=== PATIENT | female | born 1990 | race Caucasian/White ===

== ENCOUNTER → 2020-05-07 12:05 | Outpatient (CLI) | payer OTHER, SELFPAY | PROVIDERS: PCP Family Medicine; Visit Provider Family Medicine | DX: Z03.818 Encounter for observation for suspected exposure to other biological agents ruled out (principal) | CPT/HCPCS: U0003 ==

== ENCOUNTER → 2020-10-25 14:11 | Outpatient (CLI) | payer OTHER, SELFPAY ==
--- NOTE | 2020-10-25 14:18 | US_ITS ---
PROCEDURE: US BREAST RT COMPLETE CLINICAL INDICATION: RT BREAST LUMP,RT BREAST PAIN COMPARISON: No exams were available for comparison FINDINGS: No suspicious masses or focal nodules. Glandular tissue is noted in the retroareolar region. There is right axillary lymph node measuring 3.4 centimeters, demonstrates normal morphology with reniform shape and central fatty hilum. IMPRESSION: No suspicious findings or mass lesions. Dictated by: Erika Bundy 11/01/2020 10:23 Erika Bundy in [place] 11/01/2020 10:23
== END ==
PROVIDERS: PCP Family Medicine; Visit Provider Nurse Practitioner Family
DX: N64.4 Mastodynia (principal); N63.10 Unspecified lump in the right breast, unspecified quadrant
CPT/HCPCS: 76641

== ENCOUNTER → 2021-03-17 16:05 | Outpatient (CLI) | payer OTHER, SELFPAY | PROVIDERS: PCP Family Medicine; Visit Provider Nurse Practitioner | DX: Z20.822 Contact with and (suspected) exposure to COVID-19 (principal) | CPT/HCPCS: C9803; U0003; U0005 ==

== ENCOUNTER → 2021-04-21 12:18 | Outpatient (CLI) | payer OTHER, SELFPAY | PROVIDERS: PCP Family Medicine; Visit Provider Nurse Practitioner | DX: Z20.822 Contact with and (suspected) exposure to COVID-19 (principal) | CPT/HCPCS: C9803; U0003; U0005 ==

== ENCOUNTER 2021-04-23 11:51 | Emergency (ER) | payer OTHER, SELFPAY ==
[2021-04-23 11:55] VITALS: BP 131/86; PULSE 101; RESP 19; TEMP 36.8; O2SAT 98; BMI 26.7
--- NOTE | 2021-04-23 12:16 | HMH.EDUTC ---
[facility] [place] Clinical Impression: Sinusitis Qualifiers: Sinusitis location: unspecified location Chronicity: unspecified Qualified Code(s): J32.9 - Chronic sinusitis, unspecified Disposition: Home, Self-Care Condition on Discharge: Good Instructions: Sinusitis, DI for Sinusitis, Azithromycin Additional Instructions: *Monitor Temp, Over the counter Motrin or Tylenol as directed/as needed Tylenol every 4 hours and Motrin every 6 hours (as long as your family doctor has told you that you can take it) for fever or pain. and straight to ER if unable to lower temp less than 101.0 after medication given *Warm salt water gargles may help to soothe the throat *Throat Lozenges *Warm fluids like tea with honey may help to soothe the throat *Sleep elevated *Humidifier/Vaporizer *Flonase 2 sprays in each nostril daily but be aware that it may take 2-3 days before you notice improvement Follow up IMMEDIATELY for new or worsening symptoms or no Noticeable improvement over the next 48-72 hours. 911 for difficulty breathing or swallowing Prescriptions: Fluticasone Propionate [Flonase 50mcg nasal spray 16gm] 1 spr NS DAILY #1 ml Transmission Status: Pending to [facility] methylPREDNISolone [Medrol 4mg tab] 4 mg PO DIRECTED #21 tab Transmission Status: Pending to [facility] Azithromycin [Z-Raman 250mg Tab] 250 mg PO DIRECTED #6 tab Transmission Status: Pending to [facility] Referrals: Ángel Goel MD [Primary Care Provider] - As needed Forms: Work/School Release Time of Disposition: 12:23 Medical Decision Making - Joe Inquiry Pt receiving controlled substance: No Joe was queried for this patient: No Vital Signs: 04/23/21 11:55 Temperature 98.3 F Temperature Source Oral Pulse Rate [Right Brachial] 101 H Respiratory Rate 19 Blood Pressure [Right Arm] 131/86 Blood Pressure Mean [Right Arm] 101 Blood Pressure Source [Right Arm] Automatic Cuff Blood Pressure Position [Right Arm] Sitting 02 Sat by Pulse Oximetry 98 Oxygen Delivery Method Room Air Orders (Tests/Meds): ORDERS Category Date Time Status Covid-19 Nasal PCR ([facility]) Routine Lab 04/23/21 12:02 Received [facility] [place] HPI - General Stated complaint: covid exposure, symptoms Time Seen by Provider: 04/23/21 12:16 Mode of Arrival: Ambulatory Source of Information: Patient Limitations: No Limitations Description of Symptoms (Recalled from Triage Doc. by RN): PATIENT C/O SINUS CONGESTION/DRAINAGE, COUGH AND FATIGUE SINCE WEDNESDAY. HER FIANCE TESTED POSITIVE FOR COVID ON WEDNESDAY HEENT Symptoms (Recalled from RN notes): Yes Resp Symptoms (Recalled from RN notes): No Skin Symptoms (Recalled from RN notes): No MS Symptoms (Recalled from RN notes): No Functional Status (Recalled from RN notes): WNL - History of Present Illness Provider Complaint: Patient states that she has been around her boyfriend that tested positive for COVID states that she started with sinus congestion and pressure about a week ago and over the weekend he tested positive so on Wednesday she went and got tested and it was negative so today she came in to get checked thinking she may have a sinus infection - Related Data Home Medications Medication Instructions Recorded Confirmed Albuterol Sulfate [Albuterol HFA 2 puffs IH Q6HP PRN 10/09/18 10/09/18 Inhaler] Amitriptyline HCl [Elavil 25mg 25 mg PO DAILY 10/09/18 10/09/18 tablet] Ascorbic Acid [Vitamin C] 500 mg PO DAILY 10/09/18 10/09/18 Azelastine HCl [Azelastine Nasal 2 spray NS BID 10/09/18 10/09/18 [place] 30mL Bottle] Azithromycin [Z-Raman 250mg Tab] 250 mg PO UD DOSE PK 10/09/18 10/09/18 Ferrous Gluconate [Iron] 236 mg PO DAILY 10/09/18 10/09/18 Loratadine [Claritin] 10 mg PO DAILY 10/09/18 10/09/18 Montelukast Sodium [Montelukast 10 mg PO DAILY 10/09/18 10/09/18 10mg Tab] Norgestimate-Ethinyl Estradiol 1 each PO DAILY 10/09/18 10/09/18 [Estarylla 0.25-0.035 mg Tablet] Omepr
[2021-04-23 12:27] VITALS: BP 131/86; PULSE 101; RESP 19; TEMP 36.8; O2SAT 98
== END 2021-04-23 12:34 | disposition home or self-care (01) ==
PROVIDERS: Emergency Provider Nurse Practitioner; PCP Family Medicine
DX: J02.9 Acute pharyngitis, unspecified (principal); J32.9 Chronic sinusitis, unspecified; Z20.822 Contact with and (suspected) exposure to COVID-19; Z88.2 Allergy status to sulfonamides
CPT/HCPCS: 99202; C9803; G0463; U0003; U0005

== ENCOUNTER 2021-09-13 11:07 | Emergency (ER) | payer BC, SELFPAY ==
[2021-09-13 11:22] VITALS: BP 159/94; PULSE 107; RESP 16; TEMP 37.2; O2SAT 98; BMI 5711.9
[2021-09-13 11:39] VITALS: BP 159/94; PULSE 107; RESP 16; TEMP 37.2
[2021-09-13 11:39] LABS: UTC Influenza A Antigen Negative (Negative); UTC Influenza B Antigen Negative (Negative)
--- NOTE | 2021-09-13 12:08 | HMH.EDUTC ---
[facility] [place] Impression: Viral syndrome Sinusitis Qualifiers: Sinusitis location: unspecified location Chronicity: acute Recurrence: non-recurrent Qualified Code(s): J01.90 - Acute sinusitis, unspecified Disposition: Home, Self-Care Condition on Discharge: Good Instructions: DI for Sinusitis Additional Instructions: Drink plenty of fluids. Take tylenol or ibuprofen for pain or fever. Take the medications as directed. Follow up with your regular doctor. GO TO THE ER FOR ANY WORSENING SYMPTOMS Prescriptions: Brompheniramine/Pseudoephed/Dm [Bromfed Dm Cough Syrup] 5 ml PO Q6HP PRN #240 ml PRN Reason: Cough Transmission Status: Received by [facility]91 methylPREDNISolone [Medrol] 4 mg PO DIRECTED 6 Days #21 packet Transmission Status: Received by [facility] Azithromycin [Z-Raman 250mg Tab*] 250 mg PO UD DOSE PK #6 tab Transmission Status: Received by [facility] Referrals: Ángel Goel MD [Primary Care Provider] - Time of Disposition: 12:21 Medical Decision Making - Medical Records Medical records reviewed: No: I reviewed the patient's medical records. - Joe Inquiry Pt receiving controlled substance: No Vital Signs: 09/13/21 11:22 09/13/21 11:39 Temperature 98.9 F 98.9 F Temperature Source Oral Pulse Rate 107 H Pulse Rate [Left] 107 H Respiratory Rate 16 16 Blood Pressure 159/94 H Blood Pressure [Right Arm] 159/94 H Blood Pressure Mean [Right Arm] 115 02 Sat by Pulse Oximetry 98 - Lab Data Lab results reviewed: Yes: I reviewed the patient's lab results. Lab Results 09/13/21 11:36: Influenza Type A Ag Negative, Influenza Type B Ag Negative [facility] [place] - General Stated complaint: sinus congestion, body aches Time Seen by Provider: 09/13/21 12:08 Mode of Arrival: Ambulatory Source of Information: Patient Limitations: No Limitations Description of Symptoms (Recalled from Triage Doc. by RN): pt c/o sinus congestion/pressure, HOFFMAN presenting in her eyes, body aches and nasal drainage. x5days HEENT Symptoms (Recalled from RN notes): Yes Resp Symptoms (Recalled from RN notes): No Skin Symptoms (Recalled from RN notes): No MS Symptoms (Recalled from RN notes): No Functional Status (Recalled from RN notes): wnl - History of Present Illness Provider Complaint: She has had nasal congestion, sore throat, nonproductive cough for the past 4 days. - Related Data Home Medications Medication Instructions Recorded Confirmed Albuterol Sulfate [Albuterol HFA 2 puffs IH Q6HP PRN 10/09/18 10/09/18 Inhaler] Amitriptyline HCl [Elavil 25mg 25 mg PO DAILY 10/09/18 10/09/18 tablet] Ascorbic Acid [Vitamin C] 500 mg PO DAILY 10/09/18 10/09/18 Azelastine HCl [Azelastine Nasal 2 spray NS BID 10/09/18 10/09/18 [place] 30mL Bottle] Azithromycin [Z-Raman 250mg Tab] 250 mg PO UD DOSE PK 10/09/18 10/09/18 Ferrous Gluconate [Iron] 236 mg PO DAILY 10/09/18 10/09/18 Loratadine [Claritin] 10 mg PO DAILY 10/09/18 10/09/18 Montelukast Sodium [Montelukast 10 mg PO DAILY 10/09/18 10/09/18 10mg Tab] Norgestimate-Ethinyl Estradiol 1 each PO DAILY 10/09/18 10/09/18 [Estarylla 0.25-0.035 mg Tablet] Omeprazole [Omeprazole 40mg 40 mg PO DAILY 10/09/18 10/09/18 Capsule] Previous Rx's Medication Instructions Recorded Acyclovir [Acyclovir 800mg tab] 800 mg PO QID #28 tab 10/09/18 Gabapentin [Neurontin 100mg 100 mg PO BID #14 cap 10/09/18 cap] predniSONE [Prednisone 20mg 20 mg PO BID #10 tab 10/09/18 Tab] Azithromycin [Z-Raman 250mg Tab] 250 mg PO DIRECTED #6 tab 04/23/21 Fluticasone Propionate [Flonase 1 spr NS DAILY #1 ml 04/23/21 50mcg nasal spray 16gm] methylPREDNISolone [Medrol 4mg 4 mg PO DIRECTED #21 tab 04/23/21 tab] Azithromycin [Z-Raman 250mg Tab*] 250 mg PO UD DOSE PK #6 tab 03/26/22 Brompheniramine/Pseudoephed/Dm 5 ml PO Q6HP PRN #240 ml 09/13/21 [Bromfed Dm Cough Syrup] methylPREDNISo
== END 2021-09-13 12:35 | disposition home or self-care (01) ==
PROVIDERS: Emergency Provider Nurse Practitioner Family; PCP Family Medicine
DX: J01.90 Acute sinusitis, unspecified (principal)
CPT/HCPCS: 87804; 99212; G0463

== ENCOUNTER 2022-02-25 11:19 | Emergency (ER) | payer BC, SELFPAY ==
[2022-02-25 12:20] VITALS: BP 140/90; PULSE 93; RESP 17; TEMP 37.1; O2SAT 98; BMI 28.6
--- NOTE | 2022-02-25 12:49 | EXP.UTC ---
Discharge Plan Disposition Patient Disposition: Home, Self-Care Condition: Good Prescriptions Prescriptions: New methylprednisolone [Medrol (Raman)] 4 mg tablets,dose pack See Rx Instructions .Route .COMPLEX 6 Days Qty: 21 0RF Rx Instructions: taper pack; amoxicillin-pot clavulanate 875-125 mg Tablet 1 tab PO Q12H Qty: 20 0RF No Action buspirone 10 mg tablet 10 mg PO DAILY Flovent HFA 110 mcg/actuation HFA aerosol inhaler 1 puff INHALATION BID norgestimate-ethinyl estradiol 0.25-35 mg-mcg tablet 1 tab PO DAILY Qty: 28 11RF omeprazole 40 MG capsule,delayed release(DR/EC) 40 mg PO DAILY montelukast 10 MG tablet 10 mg PO DAILY azelastine 137 MCG/0.137 ML bottle 2 spray NS BID albuterol sulfate 18 GM HFA aerosol inhaler 2 puffs IH Q6HP PRN (Reason: Shortness Of Breath Or Wheezing) loratadine 10 MG capsule 10 mg PO DAILY fluticasone propionate 120 SPR/BOT bottle 1 spr NS DAILY Qty: 1 0RF Rx Instructions: each nostril daily Referrals Follow up/Referrals: Chiara Ochoa APRN [Primary Care Provider] - See instructions Clinical Impressions Clinical Impression: Sinusitis Instructions Patient Instructions: DI for Sinusitis, Sinusitis Discharge ED Provider: Emilie Bryson [facility] General Stated complaint: Possible sinus infection Mode of Arrival: Ambulatory Source of Information: Patient Limitations: No Limitations Time Seen by Provider: 02/25/22 12:49 Description of Symptoms (Recalled from Triage Doc. by RN): PATIENT C/O SINUS PRESSURE, MUCOUS, AND LOSS OF VOICE X 2 WEEKS HEENT Symptoms (Recalled from RN notes): Yes Resp Symptoms (Recalled from RN notes): No Skin Symptoms (Recalled from RN notes): No MS Symptoms (Recalled from RN notes): No Functional Status (Recalled from RN notes): WNL History of Present Illness Provider Complaint: Patient states that she has been having sinus pain and pressure along with loss of voice and thick nasal discharge for 2 weeks States that she has been doing sinus rinse but not helped much States that today she was still having issues so she came in Related Data Home Medications Medication Instructions Recorded Confirmed albuterol sulfate 90 mcg/actuation 2 puffs IH Q6HP PRN Shortness Of 10/09/18 10/09/21 aerosol inhaler Breath Or Wheezing azelastine 137 mcg (0.1 %) nasal 2 spray NS BID Allergy symptoms 10/09/18 10/09/21 spray aerosol loratadine 10 mg capsule 10 mg PO DAILY Allergy symptoms 10/09/18 10/09/21 montelukast 10 mg tablet 10 mg PO DAILY Asthma 10/09/18 10/09/21 omeprazole 40 mg capsule,delayed 40 mg PO DAILY GERD 10/09/18 10/09/21 release buspirone 10 mg tablet 10 mg PO DAILY 10/09/21 10/09/21 fluticasone propionate 110 1 puff inhalation BID 10/09/21 10/09/21 mcg/actuation HFA aerosol inhaler (Flovent HFA) Previous Rx's Medication Instructions Recorded fluticasone propionate 50 1 spr NS DAILY #1 mL 04/23/21 mcg/actuation nasal spray,suspension norgestimate 0.25 mg-ethinyl 1 tab PO DAILY control #28 10/09/21 estradiol 35 mcg tablet tabs amoxicillin 875 mg-potassium 1 tab PO Q12H #20 tabs 02/25/22 clavulanate 125 mg tablet methylprednisolone 4 mg tablets in See Rx Instructions .Route 02/25/22 a dose pack (Medrol (Raman)) .COMPLEX 6 days #21 tabs Allergies Allergy/AdvReac Type Severity Reaction Status Date / Time Sulfa (Sulfonamide Allergy Mild Verified 10/09/21 15:33 Antibiotics) [SULFA (SULFONAMIDE ANTIBIOTICS)] Worker's Comp Is this a Worker's Comp case?: No PFSH PFSH Medical History (Updated 02/25/22 @ 13:11 by Emilie Bryson APRN) No significant past medical history Social History (Updated 02/25/22 @ 12:33 by Carina Morton RN) Smoking Status: Never smoker alcohol intake: never substance use type: denies use current occupational status: employed Travel in the last 8 weeks: None TERRANCE Vazquez
[2022-02-25 13:13] VITALS: BP 140/90; PULSE 93; RESP 17; TEMP 37.1; O2SAT 98
== END 2022-02-25 13:16 | disposition home or self-care (01) ==
PROVIDERS: Emergency Provider Nurse Practitioner; PCP Nurse Practitioner Family
DX: J32.9 Chronic sinusitis, unspecified (principal)
CPT/HCPCS: 99212; G0463

== ENCOUNTER 2023-04-04 14:53 | Emergency (ER) | payer BC, SELFPAY ==
[2023-04-04 15:05] VITALS: BP 141/86; PULSE 91; RESP 18; TEMP 36.9; O2SAT 99; BMI 32.5
--- NOTE | 2023-04-04 15:28 | EXP.UTC ---
Discharge Plan Disposition Patient Disposition: Home, Self-Care Condition: Good Prescriptions Prescriptions: New azithromycin [Zithromax Z-Raman] 250 mg tablet See Rx Instructions .ROUTE .COMPLEX 5 Days Qty: 6 0RF Rx Instructions: For 250 mg dose pack: take 500 mg today (day 1), then 250 mg for 4 days (days 2-5) No Action levocetirizine 5 mg tablet 5 mg PO DAILY norgestimate-ethinyl estradiol 0.25-35 mg-mcg tablet 1 tab PO DAILY Qty: 28 11RF cholecalciferol (vitamin D3) 50 mcg (2,000 unit) capsule 50 mcg PO DAILY multivitamin Tablet 1 tab PO DAILY magnesium glycinate 100 mg tablet 400 mg PO DAILY Rx Instructions: One 400 mg tablet daily. levalbuterol tartrate 45 mcg/actuation HFA aerosol inhaler inhalation ciprofloxacin-dexamethasone 0.3-0.1 % drops,suspension 4 drp otic (ear) BID buspirone 15 mg tablet 15 mg PO BID Qty: 60 2RF lisinopril 20 mg tablet 20 mg PO DAILY 30 Days Qty: 30 2RF omeprazole 40 MG capsule,delayed release(DR/EC) 40 mg PO DAILY montelukast 10 MG tablet 10 mg PO DAILY azelastine 137 MCG/0.137 ML bottle 2 spray intranasal BID fluticasone propionate 120 SPR/BOT bottle 1 spr intranasal DAILY Qty: 1 0RF Rx Instructions: each nostril daily Referrals Follow up/Referrals: Chiara Ochoa APRN [Primary Care Provider] - See instructions Activity Restrictions/Add. Instructions Additional Instructions/Restrictions: *Monitor Temp, Over the counter Motrin or Tylenol as directed/as needed Tylenol every 4 hours and Motrin every 6 hours (as long as your family doctor has told you that you can take it) for fever or pain. and straight to ER if unable to lower temp less than 101.0 after medication given *Sleep elevated *Humidifier/Vaporizer *Flonase 2 sprays in each nostril daily but be aware that it may take 2-3 days before you notice improvement Follow up IMMEDIATELY for new or worsening symptoms or no Noticeable improvement over the next 48-72 hours. 911 for difficulty breathing or swallowing Clinical Impressions Clinical Impression: Otitis media Qualifiers: Otitis media type: unspecified Laterality: left Qualified Code(s): H66.92 - Otitis media, unspecified, left ear Instructions Patient Instructions: Middle Ear Infection, Ear Infections (Alternative Therapy) Discharge ED Provider: Emilie Bryson [facility] General Stated complaint: bilateral ear pain, upset stomach Mode of Arrival: Ambulatory Source of Information: Patient Limitations: No Limitations Time Seen by Provider: 04/04/23 15:28 Description of Symptoms (Recalled from Triage Doc. by RN): PATIENT C/O LEFT EAR PAIN, NAUSEA, HEADACHE, AND FEELING UNSTEADY X 3 DAYS HEENT Symptoms (Recalled from RN notes): Yes Resp Symptoms (Recalled from RN notes): No Skin Symptoms (Recalled from RN notes): No MS Symptoms (Recalled from RN notes): No Functional Status (Recalled from RN notes): WNL History of Present Illness Provider Complaint: Patient states that for the last 3 or 4 days she has been having pain in her left ear that makes her feel nauseous at time States that she has been on ear drops but doesnt feel like they are helping and she finishes them up today Related Data Home Medications Medication Instructions Recorded Confirmed azelastine 137 mcg (0.1 %) nasal 2 spray intranasal BID Allergy 10/09/18 03/31/23 spray aerosol symptoms montelukast 10 mg tablet 10 mg PO DAILY Asthma 10/09/18 03/31/23 omeprazole 40 mg capsule,delayed 40 mg PO DAILY GERD 10/09/18 03/31/23 release cholecalciferol (vitamin D3) 50 50 mcg PO DAILY 12/08/22 03/31/23 mcg (2,000 unit) capsule levocetirizine 5 mg tablet 5 mg PO DAILY 12/08/22 03/31/23 multivitamin 1 tab PO DAILY 12/08/22 03/31/23 levalbuterol tartrate 45 inhalation 02/26/23 03/31/23 mcg/actuation aerosol inhaler magnesium glycinate 100 mg tablet 400 mg PO DAILY 02/26/23 10
[2023-04-04 15:40] VITALS: BP 141/86; PULSE 91; RESP 18; TEMP 36.9; O2SAT 99
== END 2023-04-04 15:42 | disposition home or self-care (01) ==
PROVIDERS: Emergency Provider Nurse Practitioner; PCP Nurse Practitioner Family
DX: H66.92 Otitis media, unspecified, left ear (principal); R11.0 Nausea; J45.909 Unspecified asthma, uncomplicated; I10 Essential (primary) hypertension
CPT/HCPCS: 99212; 99214; G0463

== ENCOUNTER → 2023-05-17 16:48 | Outpatient (CLI) | payer BC, SELFPAY ==
[2023-05-17 15:48] LABS: Coronavirus 19, PCR Not Detected (NotDetected); Influenza A, PCR Not Detected (NotDetected); Influenza B, PCR Not Detected (NotDetected)
== END ==
PROVIDERS: PCP Nurse Practitioner Family; Visit Provider Nurse Practitioner Family
DX: R05.1 Acute cough (principal)
CPT/HCPCS: 87636

== ENCOUNTER 2024-02-25 15:15 | Outpatient (CLI) | payer BC, SELFPAY ==
--- NOTE | 2024-02-25 15:20 | XR_ITS ---
FINAL REPORT CLINICAL HISTORY: Numbness RLE, right hip pain COMPARISON: None FINDINGS: 3 views of the lumbar spine were obtained. There is no acute fracture. There is no malalignment. The vertebrae are normal in height. The disc spaces are preserved. IMPRESSION: No acute process. Reviewed, Interpreted and Dictated by Dany Lamb III, MD Transcribed by Loan Camilo Authenticated and [facility]
== END 2024-02-25 23:59 | disposition home or self-care (01) ==
PROVIDERS: PCP Nurse Practitioner Family; Visit Provider Nurse Practitioner Family
DX: M25.551 Pain in right hip (principal); M54.30 Sciatica, unspecified side
CPT/HCPCS: 72100

== ENCOUNTER 2024-03-08 08:20 | Outpatient (CLI) | payer BC, SELFPAY ==
--- NOTE | 2024-03-08 08:32 | MR_ITS ---
FINAL REPORT CLINICAL HISTORY: right hip pain, instability COMPARISON: None FINDINGS: Multiplanar MR imaging of the right hip was performed without contrast. The femoral heads have normal smooth contours. The hip joint spaces are preserved. There is no evidence of fracture or dislocation. There is localized signal abnormality along the undersurface of the right femoral neck with associated marrow edema. On the sagittal images, a small central nidus is noted measuring approximately 6 mm, best seen on image 13 of series 7. There is no evidence of avascular necrosis. No bony mass is identified. No labral tear is identified. No significant joint effusion is seen. The abductor tendons are intact. The musculature is intact. No soft tissue mass or cyst is identified. IMPRESSION: Small localized lesion along the undersurface of the femoral neck with associated marrow edema. Differential considerations include osteoid osteoma. Correlation with CT may be helpful to better characterize. Reviewed, Interpreted and Dictated by Bryant Jiménez MD Transcribed by Layla Garg Authenticated and [facility]
== END 2024-03-08 23:59 | disposition home or self-care (01) ==
PROVIDERS: PCP Nurse Practitioner Family; Visit Provider Nurse Practitioner Family
DX: M25.551 Pain in right hip (principal); M25.351 Other instability, right hip
CPT/HCPCS: 73721

== ENCOUNTER 2024-06-20 16:00 | Outpatient (RCR) | payer BC, SELFPAY | END 2024-06-20 23:59 | disposition home or self-care (01) | LOC: PT 16:00 | PROVIDERS: Visit Provider Orthopaedic Surgery | DX: M25.551 Pain in right hip (principal); M84.353A Stress fracture, unspecified femur, initial encounter for fracture; Z98.890 Other specified postprocedural states | CPT/HCPCS: 97110; 97116; 97163; 97530 ==

== ENCOUNTER 2024-07-18 17:00 | Outpatient (RCR) | payer BC, SELFPAY | END 2024-07-18 23:59 | disposition home or self-care (01) | LOC: PT 17:00 | PROVIDERS: Visit Provider Orthopaedic Surgery | DX: M25.551 Pain in right hip (principal); M84.353 Stress fracture, unspecified femur; Z98.890 Other specified postprocedural states | CPT/HCPCS: 97110; 97112; 97164; 97530 ==

== ENCOUNTER 2024-07-25 16:40 | Outpatient (RCR) | payer BC, SELFPAY | END 2024-07-25 23:59 | disposition home or self-care (01) | LOC: PT 16:40 | PROVIDERS: Visit Provider Orthopaedic Surgery | DX: Z98.890 Other specified postprocedural states (principal); M84.351D Stress fracture, right femur, subsequent encounter for fracture with routine healing | CPT/HCPCS: 97110; 97530 ==

== ENCOUNTER 2024-08-07 08:59 | Outpatient (CLI) | payer BC, SELFPAY ==
--- NOTE | 2024-08-07 08:59 | XR_ITS ---
FINAL REPORT TECHNIQUE: Bone densitometry calculations of the lumbar spine and left hip were obtained. CLINICAL HISTORY: Stress fracture right hip without trauma or injury COMPARISON: None FINDINGS: Using L1-4, the bone mineral density of the spine is 0.932 g/cm2, corresponding to T-score of -1.2. Using the left hip, the bone mineral density of the femoral neck is 0.703 g/cm2, corresponding to a T-score of -1.3. Using the right forearm, the bone mineral density of the mid is 0.495 g/cm?, corresponding to a T-score of -2.1. NOTE: T-score: Standard deviation compared with peak bone mass of young adult mean. *Following the recommendations of the International Society of Bone densitometry, classification of hip BMD is based on the lower of two T-scores; total hip or femoral neck. IMPRESSION: Diminished bone mineral density of the lumbar spine, left hip, and right forearm consistent with osteopenia. Reviewed, Interpreted and Dictated by Aniya Odell MD Transcribed by Renee Callahan Authenticated and [facility]
== END 2024-08-07 23:59 | disposition home or self-care (01) ==
LOC: RAD 08:59
PROVIDERS: PCP Nurse Practitioner Family; Visit Provider Nurse Practitioner Family
DX: M84.351A Stress fracture, right femur, initial encounter for fracture (principal)
CPT/HCPCS: 77080